=== PATIENT | male | born 1960 | race Caucasian/White ===

== ENCOUNTER 2017-06-16 06:04 | Day surgery (SDC) | payer OTHER ==
[2017-06-15 10:04] VITALS: BMI 28.3
[2017-06-16] VITALS (11 sets, daily range): BP systolic 89–142; BP diastolic 67–96; PULSE 68–86; RESP 9–26; Ht 170.2 cm; Wt 83.0 kg
[~2017-06-16] VITALS: Ht 170.2 cm; Wt 83.0 kg
[~2017-06-16 06:04] MED LIST: CEFAZOLIN 2 GM/50 ML (PMX) 50 ML IVPB SCH; SOD CHLORIDE 0.9% 1,000 ML IV SCH
[2017-06-16] MEDS ORDERED: BUPIVACAINE 0.25% (MPF) 30 ML INJ ONE (08:18)
[2017-06-16] MEDS ORDERED: POLYMYXIN/BACITRACIN 1L IRRIG ONE (08:18)
[2017-06-16] MEDS ORDERED: FENTAnyl 50 MCG/ML VIAL ONE (08:20)
[2017-06-16] MEDS ORDERED: SUCCINYLCHOLINE CHLORIDE 100 MG/5 ML SYG IV ONE (09:00)
[2017-06-16] MEDS ORDERED: LIDOCAINE 2% (SDV) 5 ML INJ ONE (09:00)
[2017-06-16] MEDS ORDERED: ROCURONIUM 50 MG INJ ONE (09:00)
[2017-06-16] MEDS ORDERED: SUGAMMADEX SODIUM 200 MG/2 ML VIAL IV ONE (09:00)
[2017-06-16] MEDS ORDERED: PROPOFOL 20 ML ONE (09:00)
[2017-06-16] MEDS ORDERED: ROPIVACAINE 0.5 % 30 ML VIAL ONE (09:18)
[2017-06-16] MEDS ORDERED: HYDROmorphONE (0.2 MG/ML) 10ML SYG IV PRN ×2 (09:30)
[2017-06-16] MEDS ORDERED: FENTAnyl 50 MCG/ML VIAL IV PRN ×3 (09:30)
[2017-06-16] MEDS ORDERED: ONDANSETRON 4 MG INJ IV PRN (09:30)
[2017-06-16] MEDS ORDERED: MEPERIDINE 25 MG INJ IV PRN (09:30)
[2017-06-16] MEDS ORDERED: METOCLOPRAMIDE 10 MG INJ IV PRN (09:30)
[2017-06-16] MEDS ORDERED: DIPHENHYDRAMINE 50 MG INJ IV PRN (09:30)
[2017-06-16] MEDS: HYDROmorphONE (0.2 MG/ML) 10ML SYG IV PRN ×2 (09:38→09:56)
--- NOTE | 2017-06-16 10:04 | SIPON ---
Date/Time of Note Date/Time of Note DATE: 06/16/17 TIME: 10:03 Operative Report Preoperative Diagnosis left inguinal hernia Postoperative Diagnosis same Operation/Procedure Performed 1. open incarcerated left inguinal hernia repair with medium ultrapro mesh 2. therapeutic injection of subcutaneous local anesthesia Surgeon see signature line safety assistant none Anesthesia: general Estimated blood loss: minimal Transfusion Required none Specimen none Grafts/Implants none Complications none Lennox GILMORE Jun 16, 2017 10:04
[2017-06-16] MEDS ORDERED: HYDROCODONE/APAP (5/325) TAB PO ONE (10:30)
--- NOTE | 2017-06-16 10:53 | OPR ---
DATE OF OPERATION: INDICATION: This is a 56-year-old male with an incarcerated left inguinal hernia. He requests surg ical repair. Risks, alternatives, benefits, and personnel were discussed with the patient. The pat ient expressed understanding and consents to the operation. PREOPERATIVE DIAGNOSIS: Incarcerated left inguinal hernia. POSTOPERATIVE DIAGNOSIS: Incarcerated left inguinal hernia. OPERATION PERFORMED: 1. Open incarcerated left inguinal hernia repair with medium size Ultrapro hernia system mesh. 2. Therapeutic subcutaneous local anesthesia injection. SURGEON: Marcelle Gonzalez MD SPECIMENS: None. COMPLICATIONS: None. ANESTHESIA: General. ESTIMATED BLOOD LOSS: 5 mL. DESCRIPTION OF PROCEDURE: The patient was taken to the OR and prepped and draped in the usual steri le fashion. Surgical timeout was performed. IV antibiotics were given. Left inguinal oblique inci heidi is made with a 10 blade. Dissection cautery was carried down to the external oblique fascia wh ich was opened with a 15 blade, and this incision is extended medial inferiorly and lateral superior ly with Metzenbaum scissors. Cord structures were identified and encircled with a Chandan drain. A large direct hernia was identified and reduced manually. The disk portion of the UltraPro system m esh was then secured in place with a running 0 Prolene from the pubic tubercle along the shelving ed ge of the inguinal ligament. Superiorly to the internal oblique, this is secured with interrupted 3 -0 Vicryl. Onlay mesh is secured in similar fashion with a running 0 Prolene from the pubic tubercl e along the shelving of the inguinal ligament. Superiorly, the onlay mesh was secured to the network intern al oblique fascia. Straps are created and reapproximated around the cord structures to recreate the inguinal ring with interrupted 0 Prolene. The external oblique fascia was closed with running 3-0 Vicryl. Jean fascia was closed with interrupted 3-0 Vicryl. Skin was closed using skin sheeba. There appears subcutaneous local anesthesia was injected incision site. Dry dressings were applied . Dictated By: MARCELLE HUHGES/WILMAN Conf#: [id number] DID#: [id number]
== END 2017-06-16 11:15 | disposition home or self-care (01) ==
LOC: SDS 06:04
PROVIDERS: ATTEND Surgery
DX: K40.30 Unilateral inguinal hernia, with obstruction, without gangrene, not specified as recurrent (principal); I10 Essential (primary) hypertension; E78.5 Hyperlipidemia, unspecified
CPT/HCPCS: 49507; C1781; J1170; J2175; J2405; J2795; J3010